=== PATIENT | female | born 1965 | race Caucasian/White ===

== ENCOUNTER 2022-02-27 08:28 | Outpatient (CLI) | payer OTHER, SELFPAY ==
--- NOTE | 2022-02-27 10:03 | W.ANESCHARGE ---
Anesthesia Charges Start Date/Time Anesthesia Start Date: 02/27/22 Anesthesia Start Time: 09:38 Stop Date/Time Anesthesia Stop Date: 02/27/22 Anesthesia Stop Time: 10:00 Summary Emergency: No
== END 2022-02-27 08:29 | disposition home or self-care (01) ==
LOC: OP CLINIC 08:29
PROVIDERS: Visit Provider Internal Medicine Gastroenterology
DX: R93.3 Abnormal findings on diagnostic imaging of other parts of digestive tract (principal); K64.8 Other hemorrhoids; K57.32 Diverticulitis of large intestine without perforation or abscess without bleeding; K57.30 Diverticulosis of large intestine without perforation or abscess without bleeding
CPT/HCPCS: 45378; 812; J2704

== ENCOUNTER 2022-08-11 16:43 | Outpatient (CLI) | payer OTHER, SELFPAY ==
--- NOTE | 2022-08-11 16:45 | CRLHL7_ITS ---
For Patients: As a result of the Century Cures Act, medical imaging exams and procedure reports are released immediately into your electronic medical record. You may view this report before your referring provider. If you have questions, please contact your health care provider. CLINICAL HISTORY: Swelling TECHNIQUE: Grayscale, color Doppler and compression sonography of the deep venous system of the left upper extremity was performed. COMPARISON: None FINDINGS: The left internal jugular, axillary and paired brachial veins and radial and ulnar are patent with color flow, compressibility, and respiratory variation. The subclavian vein is patent with color flow and respiratory variation. There is no intraluminal echogenic material within these veins to suggest thrombus. IMPRESSION: No Sonographic evidence for deep vein thrombus within the upper extremity. Dictated by Ilir Galindo MD @ 08/11/2022 6:08:06 PM Dictated by: Ilir Galindo MD @ 08/11/2022 18:08:11 (Electronically Signed)
== END 2022-08-11 16:44 | disposition home or self-care (01) ==
LOC: US 16:45
PROVIDERS: PCP Physician Assistant Medical; Visit Provider Student in an Organized Health Care Education/Training Program
DX: M25.512 Pain in left shoulder (principal); M79.89 Other specified soft tissue disorders
CPT/HCPCS: 93971

== ENCOUNTER 2023-02-01 12:45 | Outpatient (CLI) | payer OTHER, BC, SELFPAY ==
--- NOTE | 2023-02-01 13:00 | CRLHL7_ITS ---
For Patients: As a result of the Century Cures Act, medical imaging exams and procedure reports are released immediately into your electronic medical record. You may view this report before your referring provider. If you have questions, please contact your health care provider. BILATERAL SCREENING MAMMOGRAM WITH COMPUTER-AIDED DETECTION AND TOMOSYNTHESIS TECHNIQUE: CC and MLO views were obtained. These mammographic images have been obtained using full-field digital technique. These mammographic images were interpreted with the benefit of computer-aided detection. Breast Tomosynthesis was used in this interpretation. COMPARISON FILM: 01/03/22, 08/17/20, 03/21/19. FINDINGS: The breasts are heterogeneously dense, which may obscure small masses IMPRESSION: There is no radiographic evidence for malignancy. ASSESSMENT: BI-RADS Category 1: Negative RECOMMENDATION: Routine screening mammogram in 1 year. A lay language report of this examination will be provided to the patient. Gallo Caicedo M.D. Diagnostic/Nuclear Medicine Radiologist [email or web address] MARTINEZ/Dictated by: Gallo Caicedo MD @ 02/02/2023 10:14:00 AM (Electronically Signed)
== END 2023-02-01 12:46 | disposition home or self-care (01) ==
PROVIDERS: PCP Physician Assistant Medical; Visit Provider Physician Assistant Medical
DX: Z12.31 Encounter for screening mammogram for malignant neoplasm of breast (principal); R92.2 Inconclusive mammogram
CPT/HCPCS: 77063; 77067

== ENCOUNTER 2023-06-15 15:15 | Outpatient (RCR) | payer OTHER, SELFPAY | END 2023-08-31 17:20 | disposition home or self-care (01) | PROVIDERS: PCP Physician Assistant Medical; Visit Provider Physician Assistant Medical | DX: M25.561 Pain in right knee (principal); G89.29 Other chronic pain; M62.81 Muscle weakness (generalized); Z51.89 Encounter for other specified aftercare | CPT/HCPCS: 97110; 97161 ==

== ENCOUNTER 2024-02-04 08:50 | Outpatient (CLI) | payer OTHER, SELFPAY ==
--- NOTE | 2024-02-04 09:15 | CRLHL7_ITS ---
For Patients: As a result of the Century Cures Act, medical imaging exams and procedure reports are released immediately into your electronic medical record. You may view this report before your referring provider. If you have questions, please contact your health care provider. BILATERAL SCREENING MAMMOGRAM WITH COMPUTER-AIDED DETECTION AND TOMOSYNTHESIS TECHNIQUE: CC and MLO views were obtained. These mammographic images have been obtained using full-field digital technique. These mammographic images were interpreted with the benefit of computer-aided detection. Breast Tomosynthesis was used in this interpretation. COMPARISON FILM: 08/17/20, 01/03/22, 02/01/23. FINDINGS: There are scattered areas of fibroglandular density. IMPRESSION: There is no radiographic evidence for malignancy. ASSESSMENT: BI-RADS Category 1: Negative RECOMMENDATION: Routine screening mammogram in 1 year. A lay language report of this examination will be provided to the patient. Ilir Cantrell M.D. Diagnostic Radiologist [email or web address] SP/Dictated by: Ilir Cantrell MD @ 02/11/2024 11:56:00 AM (Electronically Signed)
== END 2024-02-04 08:51 | disposition home or self-care (01) ==
LOC: MAMMO 08:51
PROVIDERS: PCP Physician Assistant Medical; Visit Provider Physician Assistant Medical
DX: Z12.31 Encounter for screening mammogram for malignant neoplasm of breast (principal)
CPT/HCPCS: 77063; 77067

== ENCOUNTER 2025-03-11 07:44 | Outpatient (CLI) | payer OTHER, SELFPAY ==
--- NOTE | 2025-03-11 07:45 | CRLHL7_ITS ---
For Patients: As a result of the Century Cures Act, medical imaging exams and procedure reports are released immediately into your electronic medical record. You may view this report before your referring provider. If you have questions, please contact your health care provider. INDICATION: BILATERAL SCREENING MAMMOGRAM, ASYMPTOMATIC 59 Y/O FEMALE COMPARISON: 02/04/2024, 02/01/2023, 01/03/2022 TECHNIQUE: Digital mammogram in CC and MLO projections including computer-aided detection (CAD) and tomosynthesis. BREAST COMPOSITION: There are scattered areas of fibroglandular density. FINDINGS: No suspicious findings. ASSESSMENT: BI-RADS 1 Negative RECOMMENDATION: Annual screening mammogram. A lay language report of this examination will be provided to the patient. Dictated by: Rhona Singh MD @ 03/12/2025 11:13:20 (Electronically Signed)
== END 2025-03-11 07:45 | disposition home or self-care (01) ==
LOC: MAMMO 07:44
PROVIDERS: PCP Physician Assistant Medical; Visit Provider Physician Assistant Medical
DX: Z12.31 Encounter for screening mammogram for malignant neoplasm of breast (principal)
CPT/HCPCS: 77063; 77067